=== PATIENT | male | born 1955 | race Caucasian/White ===

== ENCOUNTER → 2017-05-19 | Outpatient (CLI) | payer OTHER ==
--- NOTE | 2017-05-19 09:46 | REP ---
Low-dose lung screening chest CT without IV contrast: Scanning is performed without IV contrast and images are presented at lung windowing only. There are no nodules, masses, infiltrates or effusions. There are numerous bulla throughout the lung parenchyma bilaterally, particularly in the upper lobes. There is are small calcified granulomata in the superior segment of the right lower lobe and superior segment of the left lower lobe. Impression: Category one low-dose screening chest CT. The probability of malignancy is less than 1%. The recommendation is for continued annual screening low-dose chest CT. Signed by Christopher Larios MD 05/19/2017 08:24 A
== END ==
LOC: M RAD 07:39
PROVIDERS: ATTEND Internal Medicine
DX: Z12.2 Encounter for screening for malignant neoplasm of respiratory organs (principal); F17.210 Nicotine dependence, cigarettes, uncomplicated; R91.8 Other nonspecific abnormal finding of lung field

== ENCOUNTER → 2019-06-22 | Outpatient (CLI) | payer OTHER ==
--- NOTE | 2019-06-22 08:50 | REP ---
Noncontrast CT study of the chest: Low-dose screening exam. History: Nicotine dependence. Current smoker. Comparison study: May 19, 2017. CT findings: There are advanced pulmonary emphysematous changes most pronounced in the upper lobes but also seen in the lower lobes. These are essentially unchanged. There are numerous scattered calcified granulomata throughout the lung dsouza as before. There is some linear fibrosis in the right lower lobe lingula and right middle lobe. No suspicious pulmonary nodule or mass lesion is evident. Impression: Lung RADS category 1 negative study. Repeat screening exam suggested in 1 year. Electronically Signed by Bear Guzman MD 06/22/2019 09:16 A
== END ==
LOC: M RAD 07:49
PROVIDERS: ATTEND Internal Medicine
DX: F17.200 Nicotine dependence, unspecified, uncomplicated (principal)

== ENCOUNTER → 2020-08-01 | Outpatient (CLI) | payer OTHER ==
--- NOTE | 2020-08-01 15:24 | REP ---
INDICATION: SMOKER, LUNG CANCER SCREENING COMPARISON: 06/22/2019, 05/19/2017 TECHNIQUE: Axial noncontrast images from the thoracic inlet to the upper abdomen using low-dose lung screening technique (LDCT). FINDINGS: Current examination demonstrates new biapical irregular areas of consolidation (right greater than left). There is a new 10 mm density in the right upper lobe (image 25) and new 11 mm nodule in the right upper lobe (image 29). Smaller new nodular densities are also suspected. Moderate chronic emphysematous changes with bronchiectasis and scattered scarring again noted. No pleural effusion. No pneumothorax. Adenopathy cannot be excluded. Stable atherosclerotic changes to the thoracic aorta and coronary arteries again noted. Musculoskeletal structures are intact and without acute osseous abnormality. IMPRESSION: 1. Lung-RADS category 4. New ill-defined densities at the bilateral apices (right greater than left) with new noncalcified density/nodule in the right upper lobe measuring up to 11 mm. Management recommendations include 3 month low-dose CT surveillance and/or PET-CT. <Electronically signed by Gabino Granado > 08/01/20 [id number]
== END ==
LOC: M RAD 13:43
PROVIDERS: ATTEND Internal Medicine
DX: Z12.2 Encounter for screening for malignant neoplasm of respiratory organs (principal); F17.200 Nicotine dependence, unspecified, uncomplicated; R91.8 Other nonspecific abnormal finding of lung field

== ENCOUNTER → 2020-09-02 | Outpatient (CLI) | payer OTHER ==
--- NOTE | 2020-09-03 14:15 | REP ---
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 Prior low-dose screening CT examination of the lungs showed new biapical densities COMPARISON: Low-dose screening CT examination of the lungs 08/01/2020 and 06/22/2019 there are no prior PET-CT scans to review. TECHNIQUE: After the intravenous administration of 8.11 mCi of FDG 18 triplane whole-body PET-CT was performed from the skull base to the mid thigh. FINDINGS: The asymmetric and patchy areas of increased density seen in the periphery of the lung apical regions on the prior CT examination of 08/01/2020 show minimal areas of hypermetabolism with the highest SUV value of 2.7. The preponderance of the densities have SUV values well below 2.5. There is abnormal hypermetabolic activity seen in mediastinal and right hilar lymph nodes with the maximal right hilar hypermetabolic activity of 4.3 SUV value and a maximal mediastinal hypermetabolic activity of 3.6 SUV values. No other areas of abnormal hypermetabolic activity is seen in the neck, chest, abdomen, or pelvis. IMPRESSION: Although the areas of patchy increased density seen in the lung apical regions on the CT of 08/01/2020 are hypermetabolic if hypermetabolic activity is considered at 2.5 rather than 3.0, these subtle areas are seen with mediastinal and right hilar hypermetabolic foci consistent with lymph nodes. I cannot accurately evaluate these areas with a CT component of today CT-PET since it is a limited noncontrast enhanced CT and I cannot accurately evaluate those areas with the prior low-dose screening CT examination due to the protocol utilized in obtaining that examination which limits evaluation of the lung dsouza only. Considerations for the cause of the findings include inflammatory changes and other reasons for hypermetabolic activity other than possible neoplastic change alone. I have been given no other history on this patient other than the history stated in this report. <Electronically signed by Donald Holbrook > 09/03/20 [id number]
== END ==
LOC: M PLARAD 08-19 08:23
PROVIDERS: ATTEND Internal Medicine
DX: R91.1 Solitary pulmonary nodule (principal)
CPT/HCPCS: 78815; A9552

== ENCOUNTER → 2020-09-10 | Outpatient (CLI) | payer OTHER | LOC: M LABSMTC 11:53 | PROVIDERS: ATTEND Anesthesiology | DX: Z01.812 Encounter for preprocedural laboratory examination (principal); Z20.828 Contact with and (suspected) exposure to other viral communicable diseases ==

== ENCOUNTER 2020-09-15 07:39 | Day surgery (SDC) | payer OTHER ==
[~2020-09-15] VITALS: Ht 180.3 cm; Wt 85.7 kg
[~2020-09-15 07:39] MED LIST: LR 1,000 ML IV ONE; ceFAZolin SOD 2 GM in IV 1 EA IV ONE; fentaNYL 100 MCG/2 ML INJECTION (J3010) IV PRN
[2020-09-15] MEDS ORDERED: MIDAZOLAM INJ 2MG/2ML VIAL (J2250 PER 1MG) As Ordered ONE ×2 (08:36→09:27)
[2020-09-15] MEDS ORDERED: LIDOCAINE 2% 100MG/5ML SDV (FOR ANES.) As Ordered ONE (08:36)
[2020-09-15] MEDS ORDERED: propofoL 200 MG/20 ML VIAL As Ordered ONE (08:36)
[2020-09-15] MEDS ORDERED: fentaNYL 100 MCG/2 ML INJECTION (J3010) As Ordered ONE ×3 (08:36→13:08)
[2020-09-15] MEDS ORDERED: ONDANSETRON 4MG/2ML VIAL As Ordered ONE (08:36)
[2020-09-15] MEDS ORDERED: dexameTHASONE 4 MG/ML 1ML VIAL (J1100 PER 1MG) As Ordered ONE ×2 (08:36→09:27)
[2020-09-15] MEDS ORDERED: ROCURONIUM BROMIDE 50 MG/5 ML VIAL As Ordered ONE (08:36)
[2020-09-15] MEDS ORDERED: ROPIvacaine 0.5% 30ML INJECTION (J2795 PER 1MG) As Ordered ONE (09:27)
[2020-09-15] MEDS ORDERED: EPINEPHrine INJ 1 MG/ML 1ML AMP As Ordered ONE (09:28)
[2020-09-15] MEDS ORDERED: LIDOCAINE 1% MDV 20ML VIAL As Ordered ONE (09:29)
[2020-09-15] MEDS ORDERED: ROPIvacaine 0.5% 30ML INJECTION (J2795 PER 1MG) XX ONE (09:30)
[2020-09-15] MEDS ORDERED: EPINEPHrine INJ 1 MG/ML 1ML AMP XX ONE (09:30)
[2020-09-15] MEDS ORDERED: LIDOCAINE 1% MDV 20ML VIAL XX ONE (09:30)
[2020-09-15] MEDS: MIDAZOLAM INJ 2MG/2ML VIAL (J2250 PER 1MG) IV PRN ×2 (09:35→09:45)
[2020-09-15] MEDS ORDERED: SUGAMMADEX SODIUM 500 MG/5 ML VIAL (BRIDION) As Ordered ONE (11:44)
[2020-09-15] MEDS ORDERED: ACETAMINOPHEN 1000MG 100ML IV BTL (OFIRMEV) (J0131 PER 10MG) As Ordered ONE (11:44)
[2020-09-15] MEDS ORDERED: ePHEDrine SULFATE 25 MG/5 ML(5MG/ML) SYRINGE As Ordered ONE (11:44)
[2020-09-15] MEDS ORDERED: EPINEPHrine 1MG/ML INJ 30ML MD-VIAL IR ONE (12:00)
[2020-09-15] MEDS ORDERED: PERCOCET 5MG/325MG TAB PO PRN (14:30)
[2020-09-15] MEDS ORDERED: MEPERIDINE INJ 25 MG/ML VIAL (J2175) IV PRN (14:30)
[2020-09-15] MEDS: fentaNYL 100 MCG/2 ML INJECTION (J3010) IV PRN ×3 (14:30→14:50)
[2020-09-15] MEDS ORDERED: LR 1,000 ML IV SCH ×2 (14:30)
[2020-09-15] MEDS ORDERED: ONDANSETRON 4MG/2ML VIAL IV PRN (14:30)
[2020-09-15] MEDS ORDERED: METOCLOPRAMIDE INJ 10MG/2ML VIAL (J2765 PER 1) IV PRN (14:30)
--- NOTE | 2020-09-15 16:12 | RO ---
OPERATIVE NOTE DATE OF OPERATION: 09/15/2020 PREOPERATIVE DIAGNOSIS: 1. Left shoulder rotator cuff tear. 2. Left shoulder superior labral tear. 3. Left shoulder impingement. POSTOPERATIVE DIAGNOSIS: 1. Left shoulder rotator cuff tear. 2. Left shoulder superior labral tear. 3. Left shoulder impingement. 4. Left shoulder glenohumeral arthritis with labral tear. PROCEDURE: 1. Left shoulder arthroscopic rotator cuff repair including subscapularis. 2. Left shoulder open subpectoral biceps tenodesis. 3. Left shoulder arthroscopic labral debridement and chondroplasty of the glenoid and rotator interval release. 4. Left shoulder arthroscopic subacromial decompression and microfracture of the greater tuberosity. SURGEON: Chris Beck M.D. SAMPLE TESTER: Two scrub techs. ANESTHESIA: General with preoperative nerve block. IV FLUIDS: Lactated Ringer's. ESTIMATED BLOOD LOSS: 25 mL IMPLANTS: Arthrex proximal biceps button x1 and 4.75 mm PEEK SwiveLock anchor x4. CLOSURE: Monocryl and nylon. PROCEDURE: The patient identified in the preoperative holding area. The left shoulder was marked. Examination under anesthesia revealed 170 degrees of forward flexion, 90 of external rotation, no increased anterior-posterior translation. He was then placed into the right-side down lateral decubitus position with an axillary roll and bony prominences were well padded. The left arm was placed into the Arthrex Star sleeve lateral decubitus traction norris with 10 lb of traction. He was carefully secured to the OR table. He received appropriate IV antibiotics within one hour of incision. Bilateral SCDs for DVT prophylaxis. The left shoulder was then prepped and draped in the normal sterile fashion with ChloraPrep. Prior to incision, a timeout performed per hospital protocol. Lateral portal localized with a spinal needle. Incision made with an 11 blade, a 30 degree arthroscope introduced into the joint. A diagnostic arthroscopy carried out, revealing extensive labral tearing superiorly and inferiorly. There was grade 2, borderline grade 3 chondromalacia at 6 o'clock on the glenoid, otherwise diffuse grade 1 chondral changes. There was thickening and partial tearing of the upper border of the subscapularis. There was extensive intrasubstance thickening and partial tearing of the long head of the biceps. There also appeared to be an unstable superior labral tear. There was a full-thickness tear of the supraspinatus. An anterior working portal was established at the rotator and on probing, the biceps labral anchor was noted to be unstable. The meniscal biter was used to release the long head of the biceps off the superior labrum. The shaver was then used to perform a superior labral debridement as well as an inferior labral debridement and a chondroplasty of the glenoid. Some of the frayed, poor quality supraspinatus tissue was debrided with a shaver. An accessory superolateral portal was established and the ring curette was used to clear soft off the lesser tuberosity. The subscap lifted off when performing the posterior lever push maneuver. The Scorpion was used to pass FiberTape through the upper 1/3 of the subscapularis and then those sutures were loaded through a PEEK 4.75 mm SwiveLock anchor. An awl was used to create a socket in the lesser tuberosity, the anchor docked, sutures tensioned and then anchor inserted by hand with excellent fixation. This nicely restored the subscapularis. We then proceeded with an open biceps tenodesis. A 15 blade was used to make an incision just lateral to the axilla. Cautery and Metzenbaum scissors were used to dissect down to the fascia. The long head of the biceps was retrieved and dissected out with right-angle clamp. The biceps had profound intrasubstance hypertrophy and partial tearing. A running locking whipstitch was then made with the FiberLoop and excess tendon was trimmed and sent to pathology. Sutures were loaded through the biceps button per routine. The spade-tip drill bit was used to create a drill hole within the bicipital groove and then irrigation used to remove bony debris. The button was passed through the drill hole on the driver messenger, sutures toggled which flipped the button and then one limb of the suture passed back through the biceps with a curved free needle, the knots tied by hand and locked the construct in place. This nicely restored the resting tension of the long head of the biceps. The incision was reirrigated, closed in a layered fashion with 2-0 Vicryl, 2-0 Vicryl and then a running Monocryl. At the end of the case, Steri-Strips were placed. The arthroscope was now placed in the subacromial space and via a lateral working portal, an extensive bursectomy was performed. There was a V-shaped tear. The cuff grasper was used to manipulate the tendon edges and I performed again an extensive bursectomy. The leading edge of the supraspinatus tissue was quite poor. That was debrided with a shaver. The ring curette was then used to remove all soft tissue off the tuberosity to create bleeding surface. Given that this patient smokes, I also elected to use the power pick to perform a microfracture of the greater tuberosity to improve the biologic healing. As I felt that this would benefit from a double row repair but required a few margin conversion stitches, so the Scorpion was used to pass #2 FiberWire at the apex of the tear, both anterior and posterior and the knots were tied with a knot pusher using alternating half-hitch technique. Sutures were cut. The same steps were repeated with another limb of #2 FiberWire at the new apex. Those sutures were not cut after tying knots and incorporated into the lateral row. Overall tissue quality was moderate. I then percutaneously placed a 4.75 mm PEEK SwiveLock anchor in the anterior portion of the tuberosity just off the articular surface. The eyelet sutures were passed through the far anterior portion of the tear and the knots tied with a knot pusher using half-hitch technique. This set the leading edge of the supraspinatus. `One limb of the tape was passed through the anterior central portion of the tear. The other limb of the tape was passed through the posterior central portion of the tear. I felt that there was not enough room for a second medial anchor further posterior so I passed a FiberLink with the Scorpion through the far posterior portion of the tear to help avoid a dog ear. Next, an accessory anterolateral portal was established and appropriate medial row sutures were brought out through that cannula and loaded through a 5.5 mm PEEK SwiveLock anchor. An awl was used to create a socket in the tuberosity, the anchor docked, sutures tensioned and the anchor inserted by hand with excellent fixation. These steps were repeated with the remaining medial row sutures into a posterolateral 5.5 SwiveLock which also had excellent fixation. This completed the double-row rotator cuff repair. There were no dog ears. Tuberosity was nicely covered with rotator cuff tissue. The shoulder was internally and externally rotated. There was no liftoff or buckling. The shoulder was irrigated and drained. Portals closed with nylon suture. Steri-Strips placed over the biceps tenodesis incision. Bulky sterile dressing applied. He was then placed into the R2 sling and extubated and transferred to the PACU in stable condition. POSTOP CARE: The patient will start physical therapy at two weeks, passive range of motion only initially. He can start active assisted range of motion at 8 weeks, can start active range of motion at 12 weeks, no rotator cuff strengthening until 4 months.
[2020-09-15 16:30] VITALS: BP 110/57
--- NOTE | 2020-09-15 16:40 | ECGEPIP ---
[facility] Test Date: 2020-09-15 Pat Name: RONNY MALHOTRA Department: Room: - Gender: Male Manager Content: OSIRIS : 1955 Requested By: ARIANE Ball Order Number: [id number] Reading MD: Ebenezer Jiménez Measurements Intervals Marshall Rate: 65 P: 77 AR: 211 QRS: -6 QRSD: 100 T: 39 QT: 380 QTc: 398 Interpretive Statements SINUS RHYTHM WITH FIRST DEGREE AV BLOCK POSSIBLE RIGHT VENTRICULAR CONDUCTION DELAY No prior ECG available for comparison at the time of interpretation. Electronically Signed on 09-15-2020 16:40:42 EST by Ebenezer Jiménez
== END 2020-09-15 16:30 | disposition home or self-care (01) ==
LOC: M SDC 07:39
PROVIDERS: ATTEND Orthopaedic Surgery
DX: M75.102 Unspecified rotator cuff tear or rupture of left shoulder, not specified as traumatic (principal); M75.42 Impingement syndrome of left shoulder
CPT/HCPCS: 23430; 29823; 29826; 29827; 64415; 88304; 93005; C1713; J0131; J0690; J1100; J2250; J2405; J3010

== ENCOUNTER → 2021-12-16 | Outpatient (CLI) | payer OTHER ==
[~2021-12-16] MED LIST changes: +ISOVUE-370 76% 100ML VIAL As Ordered ONE; -LR 1,000 ML IV ONE; -ceFAZolin SOD 2 GM in IV 1 EA IV ONE; -fentaNYL 100 MCG/2 ML INJECTION (J3010) IV PRN
== END ==
LOC: M RAD 15:57
PROVIDERS: ATTEND Internal Medicine
DX: R91.8 Other nonspecific abnormal finding of lung field (principal)
CPT/HCPCS: 71260; Q9967

== ENCOUNTER → 2022-05-18 | Outpatient (CLI) | payer OTHER | LOC: M CARPUL 15:02 | PROVIDERS: ATTEND Internal Medicine Pulmonary Disease | DX: J44.9 Chronic obstructive pulmonary disease, unspecified (principal) ==

== ENCOUNTER → 2023-01-25 | Outpatient (CLI) | payer MEDICARE | LOC: M RAD 16:41 | PROVIDERS: ATTEND Internal Medicine Pulmonary Disease | DX: R91.8 Other nonspecific abnormal finding of lung field (principal); F17.218 Nicotine dependence, cigarettes, with other nicotine-induced disorders ==

== ENCOUNTER → 2023-10-12 | Outpatient (CLI) | payer MEDICARE | LOC: M RAD 10:45 | PROVIDERS: ATTEND Internal Medicine | DX: Z13.6 Encounter for screening for cardiovascular disorders (principal); F17.200 Nicotine dependence, unspecified, uncomplicated ==

== ENCOUNTER → 2024-02-22 | Outpatient (CLI) | payer MEDICARE | LOC: M RAD 14:58 | PROVIDERS: ATTEND Internal Medicine Pulmonary Disease | DX: Z12.2 Encounter for screening for malignant neoplasm of respiratory organs (principal); F17.218 Nicotine dependence, cigarettes, with other nicotine-induced disorders; R91.8 Other nonspecific abnormal finding of lung field ==

== ENCOUNTER → 2024-06-04 | Outpatient (CLI) | payer MEDICARE | LOC: M PLARAD 13:00 | PROVIDERS: ATTEND Internal Medicine Pulmonary Disease | DX: R91.8 Other nonspecific abnormal finding of lung field (principal) | CPT/HCPCS: 78815; A9552 ==

== ENCOUNTER → 2025-01-07 | Outpatient (CLI) | payer MEDICARE | LOC: M RAD 15:15 | PROVIDERS: ATTEND Internal Medicine Pulmonary Disease | DX: R91.8 Other nonspecific abnormal finding of lung field (principal) ==

== ENCOUNTER → 2025-05-29 | Outpatient (CLI) | payer MEDICARE | LOC: M RAD 14:49 | PROVIDERS: ATTEND Internal Medicine Pulmonary Disease | DX: J44.9 Chronic obstructive pulmonary disease, unspecified (principal); R91.8 Other nonspecific abnormal finding of lung field ==